=== PATIENT | male | born 1995 | race African-American/Black ===

== ENCOUNTER 2020-09-23 10:19 | Emergency (ER) | payer SELFPAY ==
[~2020-09-23] VITALS: Ht 180.3 cm; Wt 91.0 kg
[2020-09-23] MEDS ORDERED: SODIUM CHLORIDE 0.9% 1,000 ML IV ONE ×2 (10:45→12:15)
[2020-09-23 11:50] LABS: BASOPHILS % 0.4 % (0.0-2.0); EOSINOPHILS % 0.1 % (0.0-5.0); HEMATOCRIT. 48.8 % (42.0-52.0); HEMOGLOBIN. 15.8 g/dL (14.0-18.0); LYMPHOCYTES % 25.4 % (20.0-50.0); MEAN CORPUSCULAR HEMOGLOBIN 28.7 pg (28.0-32.0); MEAN PLATELET VOLUME 8.4 fl (7.4-10.4); MONOCYTES % 6.4 % (2.0-8.0); NEUTROPHILS % 67.7 % (40.0-76.0); PLATELET 247 x1000/uL (130-400); RED BLOOD CELL COUNT 5.49 mill/uL (4.7-6.1)
[2020-09-23 11:57] LABS: CHLORIDE 104 mEq/L (98-107)
[2020-09-23] MEDS ORDERED: LORAZEPAM 2MG/ML CPJ IV ONE (12:00)
[2020-09-23] MEDS ORDERED: POTASSIUM CHLORIDE 20MEQ TABLET SR PO ONE (12:30)
[2020-09-23 12:47] LABS: CLARITY URINE CLEAR (CLEAR); COLOR URINE YELLOW (YELLOW); KETONES URINE 3+ (NEGATIVE); LEUKOCYTE ESTERASE URINE NEGATIVE (NEGATIVE); NITRITE URINE NEGATIVE (NEGATIVE); OCCULT BLOOD URINE NEGATIVE (NEGATIVE); PH URINE 5.5 (4.5-8.0); PROTEIN URINE TRACE (NEGATIVE); UROBILINOGEN URINE 0.2 E.U./dL (0.2-1.0)
[2020-09-23 12:48] LABS: CREATINE KINASE 605 IU/L (39-308)
[2020-09-23 13:42] LABS: *BARBITURATES SCREEN URINE NEGATIVE (NEGATIVE); *COCAINE SCREEN URINE NEGATIVE (NEGATIVE); METHADONE URINE SCREEN NEGATIVE (NEGATIVE); OPIATES URINE SCREEN NEGATIVE (NEGATIVE)
[2020-09-23 13:43] LABS: PHENCYCLIDINE URINE SCREEN NEGATIVE (NEGATIVE)
[2020-09-23 13:44] LABS: CANNABINOID URINE SCREEN NEGATIVE (NEGATIVE)
[2020-09-23 13:48] LABS: *AMPHETAMINES SCREEN URINE PRESUMTIVE POSITIVE (NEGATIVE)
[2020-09-23 13:50] LABS: *BENZODIAZEPINES SCREEN URINE NEGATIVE (NEGATIVE)
[2020-09-23 17:01] VITALS: BP 139/72
== END 2020-09-23 18:23 | disposition home or self-care (01) ==
LOC: ER 10:42
DX: E87.2 Acidosis (principal); E86.0 Dehydration; R00.0 Tachycardia, unspecified; E87.6 Hypokalemia; F15.10 Other stimulant abuse, uncomplicated
CPT/HCPCS: 36415; 71045; 80053; 80305; 81003; 82550; 83605; 84484; 85025; 93005; 96361; 96374; 99285; J2060; J7030; Z7610